=== PATIENT | female | born 1995 | race Hispanic/Latino ===

== ENCOUNTER 2017-11-10 19:44 | Emergency (ER) | payer SELFPAY ==
[2017-11-10 20:10] VITALS: TEMP 98.9; BMI 30.8
--- NOTE | 2017-11-10 20:47 | ED PDOC ---
Arrival/HPI - General Chief Complaint: Abdominal Pain Time Seen by Provider: 11/10/17 19:58 Historian: Patient - History of Present Illness Narrative History of Present Illness (Text): 11/10/17 20:47 A 22 year old female, with no significant past medical history, presents to the emergency department complaining of left lower pelvic pain for a few months. Patient reports pain worsens during menstrual cycle, LMP: 10/07/2017. Notes pain is achy, and also experiences urinary frequency. Patient denies any urinary urgency, dysuria, hematuria, fever, back pain, or any other complaints. No PMD Past Medical History - Provider Review Nursing Documentation Reviewed: Yes - Past History Past History: No Previous - Infectious Disease Hx of Infectious Diseases: None - Tetanus Immunization Tetanus Immunization: Up to Date - Psychiatric Hx Depression: No Hx Emotional Abuse: No Hx Physical Abuse: No Hx Substance Use: No - Past Surgical History Past Surgical History: No Previous - Surgical History Other/Comment: Two Abortions - Anesthesia Hx Anesthesia: No - Suicidal Assessment Feels Threatened In Home Enviroment: No Family/Social History - Physician Review Nursing Documentation Reviewed: Yes Family/Social History: No Known Family HX Smoking Status: Current Some Days Smoker Hx Alcohol Use: Yes Frequency of alcohol use: Socially Hx Substance Use: No Allergies/Home Meds Allergies/Adverse Reactions: Allergies apple Allergy (Verified 11/10/17 20:06) SWELLING grapefruit Allergy (Verified 11/10/17 20:06) SWELLING kiwi Allergy (Verified 11/10/17 20:06) SWELLING Review of Systems - Physician Review All systems were reviewed & negative as marked: Yes - Review of Systems Constitutional: absent: Fevers Gastrointestinal: Abdominal Pain (loeft lower pelvic pain) Genitourinary Female: Frequency. absent: Dysuria, Hematuria Musculoskeletal: absent: Back Pain Physical Exam Vital Signs Reviewed: Yes Vital Signs Temp Pulse Resp BP Pulse Ox 11/10/17 23:43 76 18 126/74 100 11/10/17 20:01 98.9 F 73 18 122/79 95 Temperature: Afebrile Blood Pressure: Normal Pulse: Regular Respiratory Rate: Normal Appearance: Positive for: Well-Appearing, Non-Toxic, Comfortable Pain Distress: None Mental Status: Positive for: Alert and Oriented X 3 - Systems Exam Respiratory/Chest: Present: Clear to Auscultation, Good Air Exchange. No: Respiratory Distress, Accessory Muscle Use Cardiovascular: Present: Regular Rate and Rhythm, Normal S1, S2. No: Murmurs Abdomen: Present: Tenderness (left pelvic tenderness), Guarding. No: Rebound Genitourinary/Pelvic Exam: Present: Normal External Genitalia, Vaginal Discharge (white thick discharge), Vaginal Bleeding, Cervical os Closed, Other ( bark scaler Oh). No: Vaginal Lesions, Adenexal Tenderness, Adenexal Mass, Cervical Motion Tendernes, Odor Upper Extremity: Present: Normal Inspection. No: Cyanosis, Edema Lower Extremity: Present: Normal Inspection. No: Edema Neurological: Present: GCS=15, CN II-XII Intact, Speech Normal Skin: Present: Warm, Dry, Normal Color. No: Rashes Psychiatric: Present: Alert, Oriented x 3, Normal Insight, Normal Concentration Medical Decision Making ED Course and Treatment: 11/10/17 20:52 Impression: 22 year old female with left lower pelvic pain. Pending pelvic examination. Differential Diagnosis included but are not limited to: Ovarian Cyst vs. Torsian. Plan: -- Transvaginal Ultrasound -- Labs -- Urine Culture -- Toradol -- Urinalysis -- Reassess and disposition Progress Notes: TV Sono was negative. UA negative for UTI. Patient no longer had symptoms. She was given medications for yeast infection. She was advised to return to the ED if symptoms worsen or any other concern. - Lab Interpretations Lab Results: 11/10/17 20:13 11/10/17 20:13 Lab Results 11/10/17 22:25: Urine Color Yellow, Urine Appearance Sl cloudy, Urine pH 6.0, Ur Specific [place] >= 1.030, Urine Protein Negative, Urine Glucose (UA) Negative, Urine Ketones Negative, Urine Blood Negative, Urine Nitrate Negative, Urine Bilirubin Negative, Urine Urobilinogen 0.2, Ur Leukocyte Esterase Negative 11/10/17 20:13: Sodium 145, Potassium 3.9, Chloride 108 H, Carbon Dioxide 27, Anion Gap 15, BUN 10, Creatinine 0.7, Est GFR ( Amer) > 60, Est GFR (Non- Af Amer) > 60, Random Glucose 95, Calcium 9.6, Total Bilirubin 0.5, AST 32, ALT 36, Alkaline Phosphatase 96, Total Protein 7.5, Albumin 4.1, Globulin 3.4, Albumin/Globulin Ratio 1.2 11/10/17 20:13: WBC 9.1, RBC 4.45, Hgb 13.4, Hct 39.3, MCV 88.3, MCH 30.1, MCHC 34.1, RDW 12.6, Plt Count 313, MPV 8.9, Gran % 67.8, Lymph % (Auto) 22.7, Will % (Auto) 4.2, Eos % (Auto) 4.9, Baso % (Auto) 0.4, Gran # 6.17, Lymph # (Auto) 2.1, Will # (Auto) 0.4, Eos # (Auto) 0.5, Baso # (Auto) 0.04 I have reviewed the lab results: Yes Interpretation: All labs normal - RAD Interpretation Radiology Orders: 11/10/17 20:18 TRANSVAGINAL [US] Stat - Medication Orders Current Medication Orders: Discontinued Medications Ketorolac Tromethamine (Toradol) 15 mg IVP STAT STA Stop: 11/10/17 20:20 Last Admin: 11/10/17 20:50 Dose: 15 mg MAR Pain Assessment Document 11/10/17 20:50 MATEUSZ (Rec: 11/10/17 20:50 [email or web address] [id number]) Pain Reassessment Is this a pain reassessment? No IVP Administration Document 11/10/17 20:50 MATEUSZ (Rec: 11/10/17 20:50 [email or web address] [id number]) Charges for Administration # of IVP Administrations 1 - Scribe Statement The provider has reviewed the documentation as recorded by the Harvinder Esquivel Provider Scribe Attestation: All medical record entries made by the Harvinder were at my direction and personally dictated by me. I have reviewed the chart and agree that the record accurately reflects my personal performance of the history, physical exam, medical decision making, and the department course for this patient. I have also personally directed, reviewed, and agree with the discharge instructions and disposition. Disposition/Present on Arrival - Present on Arrival Any Indicators Present on Arrival: No History of DVT/PE: No History of Uncontrolled Diabetes: No Urinary Catheter: No History of Decub. Ulcer: No History Surgical Site Infection Following: None - Disposition Have Diagnosis and Disposition been Completed?: Yes Diagnosis: Pelvic pain, Vaginal candidiasis Disposition: HOME/ ROUTINE Disposition Time: 23:43 Patient Plan: Discharge Patient Problems: Current Active Problems Problem Status Onset Pelvic pain Acute Vaginal candidiasis Acute Condition: IMPROVED Discharge Instructions (ExitCare): Vaginal Yeast Infection (DC) Additional Instructions: Christian, thank you for letting us take care of you today. Your provider was Dr. Mcnair. You were treated for Vaginal Candidiasis, Pelvic Pain. The emergency medical care you received today was directed at your acute symptoms. If you were prescribed any medication, please fill it and take as directed. It may take several days for your symptoms to resolve. Return to the Emergency Department if your symptoms worsen, do not improve, or if you have any other problems. Please contact your doctor or call one of the physicians/clinics you have been referred to that are listed on the Patient Visit Information form that is included in your discharge packet. Bring any paperwork you were given at discharge with you along with any medications you are taking to your follow up visit. Our treatment cannot replace ongoing medical care by a primary care provider (PCP) outside of the emergency department. Thank you for allowing the [facility] team to be part of your care today. If you had an X-Ray or CT scan: A Radiologist will review the ED reading if any change in treatment is needed we will contact you. If you had a blood, urine, or wound culture: It will take several days for the results, if any change in treatment is needed we will contact you. If you had an STI test: It will take 48 hours for the results. Please call after 1 week if you have not heard back. Prescriptions: Clotrimazole 1% Vaginal [Lotrimin 1% Vaginal] 1 applic VG QPM #1 tube Referrals: [facility] Tanvir Huang, [Primary Care Provider] - Follow up with primary Forms: [employer] ([place]ish), WORK NOTE
[2017-11-10 21:01] LABS: BASO # 0.04 K/mm3 (0.0-2.0); BASO % 0.4 % (0.0-3.0); EOS # 0.5 (0.0-0.7); EOS % 4.9 % (1.5-5.0); GRAN # 6.17 (1.4-6.5); GRAN % 67.8 % (50.0-68.0); HEMOGLOBIN 13.4 g/dL (12.0-16.0); LYMPH # 2.1 (1.2-3.4); LYMPH % 22.7 % (22.0-35.0); MEAN CELL VOLUME 88.3 fl (80.0-105.0); MEAN CORPUSCULAR HEMOGLOBIN 30.1 pg (25.0-35.0); MEAN CORPUSCULAR HGB CONC 34.1 g/dl (31.0-37.0); MEAN PLATELET VOLUME 8.9 fl (7.0-11.0); MONO # 0.4 (0.1-0.6); MONO % 4.2 % (1.0-6.0); RBC 4.45 10^6/uL (3.5-6.1); RED CELL DISTRIBUTION WIDTH 12.6 % (11.5-14.5); WHITE BLOOD COUNT 9.1 10^3/ul (4.5-11.0)
[2017-11-10 21:11] LABS: ALB/GLOB RATIO 1.2 (1.1-1.8); ALBUMIN 4.1 g/dL (3.0-4.8); ALT/SGPT 36 U/L (7-56); AST/SGOT 32 U/L (14-36); BLOOD UREA NITROGEN 10 mg/dL (7-21); CALCIUM 9.6 mg/dL (8.4-10.5); GFR AFRICAN-AMERICAN > 60; GFR NON-AFRICAN AMERICAN > 60
[2017-11-10 22:38] LABS: URINE BILIRUBIN NEGATIVE (NEGATIVE); URINE BLOOD NEGATIVE (NEGATIVE); URINE GLUCOSE (UA) NEGATIVE (NEGATIVE); URINE LEUKOCYTE ESTERASE NEGATIVE Leu/uL (NEGATIVE); URINE PROTEIN NEGATIVE mg/dL (<30 mg/dL); URINE UROBILINOGEN 0.2 E.U./dL (<1 E.U./dL)
[2017-11-10 22:39] LABS: URINE APPEARANCE SL CLOUDY (CLEAR); URINE COLOR YELLOW (YELLOW)
--- NOTE | 2017-11-10 22:57 | US ---
EXAM: US Pelvis Complete, Transabdominal US Pelvis, Transvaginal US Duplex Arterial/Venous of the Pelvis, Complete CLINICAL HISTORY: 22 years old, female; Pain; Pelvic pain; Additional info: Left pelvic pain R/O ovarian cyst/torsion TECHNIQUE: Real-time transabdominal and transvaginal pelvic ultrasound (complete) with image documentation. Transvaginal imaging was used for better evaluation of the endometrium and adnexa. Real-time duplex ultrasound scan of the arterial and venous flow of the pelvis with color Doppler flow and spectral waveform analysis. COMPARISON: US - TRANSVAGINAL 2016-07-30 07:37 FINDINGS: Uterus/cervix: Uterus measures 7.4 x 4.3 x 5.8 cm in size. No myometrial mass. Endometrium: 1.0 cm in thickness. Right ovary: 2.3 x 2.2 x 2.2 cm in size. No mass. Normal flow. Left ovary: 2.5 x 2.9 x 2.1 cm in size. No mass. Normal flow. Free fluid: No significant free fluid. Bladder: Unremarkable as visualized. IMPRESSION: 1.No acute findings.
[2017-11-10 23:44] VITALS: O2SAT 100
[2017-11-10 23:45] VITALS: BP 126/74; PULSE 76; RESP 18
== END 2017-11-10 23:50 | disposition home or self-care (01) ==
LOC: ED 19:44
DX: B37.3 Candidiasis of vulva and vagina (principal); R10.2 Pelvic and perineal pain
CPT/HCPCS: 76830; 80053; 81003; 85025; 87086; 87491; 87591; 96374; 99283; J1885